=== PATIENT | female | born 1955 | race Caucasian/White ===

== ENCOUNTER → 2024-01-23 14:07 | Outpatient (REF) | payer BC, SELFPAY | LOC: HWRAD 14:07 | PROVIDERS: ATTENDING PHYSICIAN Internal Medicine Endocrinology, Diabetes & Metabolism; FAMILY PHYSICIAN Internal Medicine | DX: E03.9 Hypothyroidism, unspecified (principal) | CPT/HCPCS: 76536 ==

== ENCOUNTER → 2024-03-05 15:13 | Outpatient (REF) | payer BC, SELFPAY | LOC: HWWDC 15:13 | PROVIDERS: ATTENDING PHYSICIAN Physician Assistant | DX: Z12.31 Encounter for screening mammogram for malignant neoplasm of breast (principal) | CPT/HCPCS: 77063; 77067 ==

== ENCOUNTER 2024-07-13 08:00 | Day surgery (SDC) | payer BC, SELFPAY ==
[2024-07-12 20:53] VITALS: BP 144/104
[2024-07-12 23:37] VITALS: BP 137/77
[2024-07-12 23:38] VITALS: BMI 32.4
[2024-07-13] VITALS (16 sets, daily range): BP systolic 122–151; BP diastolic 72–86
--- NOTE | 2024-07-13 00:42 | ED.GENMED ---
History of Present Illness
General
Chief Complaint: Foreign Body Ingestion
Source: patient
Exam Limitations: none
Time Seen by Provider: 07/13/24 00:34
Nursing documentation reviewed up to this point in time: agreed with
History of Present Illness
History of Present Illness:
This is a 69-year-old female with a past medical history of hypothyroidism who presents emergency department today with concerns of food bolus impaction. Patient reports that last night (07/11/24), she was eating chicken when she noticed that the
piece of chicken got stuck in her throat. Patient reports that she tried to drink water but she states that she immediately vomited water. She tried to eat other softer foods but cannot get it down without vomiting. Patient reports that this has
been going on for the past 24 hours. She was able to get her thyroid medication down this morning without regurgitation. Patient reports that this has happened to her in the past and she has been eventually able to swallow the food after a few
hours but is never gone this long before. Patient has any pain in her throat. Patient denies any pain in her chest. Patient denies any hematemesis. Patient denies any shortness of breath.
Review of Systems
Review of Systems
All Other Systems: ROS reviewed and negative except as documented in HPI and ROS
Phy Exam
Physical Exam
Physical Exam:
General: Patient is well appearing and in no acute distress; non-toxic. Hoarseness to voice noted.
Skin: Warm and dry, no rashes or lesions
Head: Normocephalic, atraumatic
Eyes: Sclera non-icteric. EOMs intact.
Mouth: No intra-oral lesions
Throat: No pharyngeal erythema, uvula midline
Cardiac: Regular rate and rhythm
Pulm: Normal respiratory effort
Neuro: CN II-XII intact, no focal neurologic deficits.
Psychiatric: Appropriate mood and affect.
Course
Orders/Labs/Results
Orders:
Orders
07/13/24 00:47
Glucagon [GlucaGen] 1 mg IV NOW STA
07/13/24 00:55
Complete Blood Count/With Diff Urgent
Comprehensive Metabolic Panel Urgent
07/13/24 01:03
Glucagon [GlucaGen] 1 mg IV NOW STA
07/13/24 06:04
Consult Gastroenterology [GASTROINTESTINAL CONSULT] Urgent
Consulting Provider: Matthieu Spears
Was physician already notified: Yes
07/13/24 06:53
Propofol [Diprivan] 40 ml .ROUTE .STK-MED
Sugammadex Sodium [Bridion] 200 mg .ROUTE .STK-MED ONE
07/13/24 06:54
Ondansetron Injectable [Zofran] 4 mg .ROUTE .STK-MED ONE
Rocuronium [place] [Rocuronium] 50 mg .ROUTE .STK-MED ONE
07/13/24 07:24
Succinylcholine Chloride [Succinylcholine] 200 mg .ROUTE .STK-MED ONE
07/13/24 08:02
HYDROmorphone [Dilaudid] 0.25 mg IV PACU-Q5MPRN PRN
Meperidine [Demerol] 12.5 mg IV PACU-Q5MPRN PRN
Morphine Sulfate 1 mg IV PACU-Q5MPRN PRN
Ondansetron Injectable [Zofran] 4 mg IV PACU-ONCEPRN PRN
Prochlorperazine [Compazine] 5 mg IV PACU-ONCEPRN PRN
Notify MD As Directed
Notify physician if: for SDS patients with known or suspected sleep obstructive sleep apnea, monitor in the
PACU.
Notify MD for any apneic/desaturation episodes
O2 Therapy [RESP] Urgent
Titrate/Wean O2 to maintain O2 sat greater than (%): 92
Special Instructions: -Provide supplemental oxygen to achieve O2 sat of 92% or greater.
-After 15 min, may wean O2 and discontinue if patient is able to maintain O2 sat of 92%
or greater during recovery period.
If patient is a discharge home, without oxygen therapy, notify anestheiologist if
unable to maintain O2 SAT of 92% or greater on room air for MD clearance.
07/13/24 08:15
Normosol (Mult Electrolytes) [Normosol-R/Plasmalyte-A] 1,000 ml IV PER PROTOCOL
Abnormal Lab Results
07/13/24
00:55
Absolute Monos (auto) 0.8 H 10^3/uL
(0.1-0.6)
Monocytes % 10.0 H %
(1.7-9.3)
Sodium 147 H mmol/L
(135-145)
Chloride 113 H mmol/L
(98-107)
Glucose 107 H mg/dl
(70-99)
07/13/24 00:55
07/13/24 00:55
Vital Signs
Initial and Last Documented VS:
Initial Vital Signs
Temp Pulse Resp BP Pulse Ox
98.2 F 78 16 144/104 98
07/12/24 20:53 07/12/24 20:53 07/12/24 20:53 07/12/24 20:53 07/12/24 20:53
Last Documented Vital Signs
Temp Pulse Resp BP Pulse Ox
98 F 88 16 133/76 94
07/13/24 09:18 07/13/24 10:00 07/13/24 10:00 07/13/24 10:00 07/13/24 10:00
MDM/Problems Addressed
Differential Diagnosis Includes:
ddx include esophageal food bolus impaction, esophagitis, esophageal web/stricture, achalasia
MDM/Problems Addressed:
This is a 69-year-old female with a past medical history of hypothyroidism who presents emergency department today with concerns of food bolus impaction. Patient reports that last night (07/11/24), she was eating chicken when she noticed that the
piece of chicken got stuck in her throat. She is currently has hoarseness to her voice and she will vomit every 20 min or so. She is not able to get food or liquids down. She received 2 doses of glucagon via IV. She subsequently seemed to be able
to tolerate sips of water however she subsequently had a return of her vomiting. GI attending made aware via [place] text at 1:30 AM. Give update at 2:18 AM. Did not receive response. Attending made aware. Since patient was stable, decision was
made to observe patient in the ED and have GI see her in the morning.
I spoke to Dr. Spears on the phone at 6:00 am. I did confirm that he is coming in to see the patient.
*Critical Care Note
Total Time (30-74mins, 75-104mins- exclusive of procedures): Not Applicable
ED Attending Note
-
Portions of this chart may have been created with voice recognition software.� Occasional wrong word or��sound alike� substitutions may have occurred due to the inherent limitations of voice recognition software.
Discharge Plan
Departure
Patient Disposition: Home (Routine Discharge)
Date of Disposition: 07/13/24
Time of Disposition: 06:06
Patient with high blood pressure during this ER visit?: Yes
Condition: Fair
Discharge Problem:
Food impaction of esophagus
Interventions
Interventions:
*Risk Screen - Suicide Last Done: 07/12/24 20:53
*General Assessment Last Done: 07/12/24 23:38
*Neglect/Abuse Screening Last Done: 07/12/24 20:53
*ED- Fall Risk Assessment Last Done: 07/12/24 23:38
*ED COVID-19 Vaccine History Last Done: 07/12/24 23:38
*Nursing Disposition Last Done: 07/13/24 07:50
PS-Bssqol-Nvfntwwkxf Assessment Last Done: 07/12/24 23:38
ED- Pulmonary Assessment Last Done: 07/12/24 23:38
ED-EENT Assessment Last Done: 07/12/24 23:38
Discharge Date and Time
Discharge Date/Time: 07/13/24 07:50
[2024-07-13 01:04] LABS: % Basophils 0.6 % (0-2); % Eosinophils 1.9 % (0-6); % Immature Granulocytes 0.4 % (0-0.5); % Lymphocytes 22.8 % (20.5-51.1); % Neutrophils 64.3 % (42.2-75.2); Absolute Basophils 0.1 10^3/uL (0-0.2); Absolute Eosinophils 0.2 10^3/uL (0-0.7); Absolute Lymphocytes 1.9 10^3/uL (1.2-3.4); Absolute Monocytes 0.8 10^3/uL (0.1-0.6); Absolute Neutrophils 5.2 10^3/uL (1.4-6.5); Hematocrit 43.6 % (37.0-47.0); Hemoglobin 14.7 g/dL (12.0-16.0); Mean Corp Hgb Conc. 33.7 g/dL (33.0-37.0); Mean Corpuscular Hgb 29.9 pg (27.0-31.0); Mean Corpuscular Volume 88.6 fL (81.0-99.0); Mean Platelet Volume 9.2 fL (7.4-10.4); Nucleated Red Blood Cells % 0 %; Platelet Count 280 10^3/uL (130-400); Red Blood Cell Count 4.92 10^6/uL (4.20-5.40); White Blood Cell Count 8.1 10^3/uL (4.8-10.8)
[2024-07-13] MEDS: GlucaGen 1 MG IV ×2 (01:05→01:35)
[2024-07-13 01:21] LABS: ALT (SGPT) 29 U/L (0-35); AST (SGOT) 27 U/L (14-36); Albumin 4.9 g/dl (3.5-5.0); Alkaline Phosphatase 54 U/L (38-126); Blood Urea Nitrogen 17 mg/dl (7-17); Calcium 9.6 mg/dl (8.4-10.2); Carbon Dioxide 25 mmol/L (22-30); Chloride 113 mmol/L (98-107); Estimated Creatinine Clearance 69 ml/min; Glucose 107 mg/dl (70-99); Potassium 3.8 mmol/L (3.5-5.1); Sodium 147 mmol/L (135-145); Total Protein 7.8 g/dl (6.3-8.2); eGFR > 60.00
--- NOTE | 2024-07-13 08:03 | CON.GI ---
Consultation
-
Date/Time Consultation Requested: 07/13/2024
Date/Time Consultation Performed: 07/13/2024
Performing Provider: Matthieu Spears
Reason for Consultation: food impaction
Medical History
Chief Complaint / HPI
Chief Complaint: Food impaction
History of Present Illness:
Patient is a 69 year-old female with history of hypothyroidism who presents with suspected food impaction. She reports sensation of piece of chicken getting stuck in her throat since 07/11. She had been having similar symptoms intermittently for
past 2 years or so without any progression. She was able to clear her ingested content by drinking some water, but was not able to do so during this episode. She has not been able to tolerate any oral intake since. It seems she was able to clear
her secretions however.
Past Medical History
Past Medical History: Hypothyroidism
Past Surgical History: Gynecological
Social History
Tobacco: Non-Smoker
Alcohol: None
Family History
Family History: Reviewed & Not Pertinent
Allergies / Home Medications
Allergy/AdvReac Type Severity Reaction Status Date / Time
Penicillins Allergy Nausea / Verified 07/12/24 20:56
Vomiting
�Medication �Instructions �Recorded
levothyroxine 75 mcg tablet 75 mcg PO DAILY 07/12/24
Review of Systems
Vital Signs
Temp Pulse Resp BP Pulse Ox
98.2 F 78 16 133/74 93
07/12/24 20:53 07/12/24 20:53 07/12/24 20:53 07/13/24 07:00 07/13/24 07:00
Physical Exam
Exam
General: Well Developed and Well Nourished
HEENT: Normocephalic
Respiratory: Clear
Cardiac: S1/S2
GI: Soft, Non Tender, Non Distended and Normal Bowel Sounds
Results
WBC 8.1 10^3/uL (4.8-10.8) 07/13/24 00:55
Hgb 14.7 g/dL (12.0-16.0) 07/13/24 00:55
Hct 43.6 % (37.0-47.0) 07/13/24 00:55
MCV 88.6 fL (81.0-99.0) 07/13/24 00:55
Plt Count 280 10^3/uL (130-400) 07/13/24 00:55
Absolute Neuts (auto) 5.2 10^3/uL (1.4-6.5) 07/13/24 00:55
Sodium 147 mmol/L (135-145) H 07/13/24 00:55
Potassium 3.8 mmol/L (3.5-5.1) 07/13/24 00:55
Chloride 113 mmol/L (98-107) H 07/13/24 00:55
Carbon Dioxide 25 mmol/L (22-30) 07/13/24 00:55
BUN 17 mg/dl (7-17) 07/13/24 00:55
Creatinine 0.8 mg/dL (0.6-1.0) 07/13/24:55
Calcium 9.6 mg/dl (8.4-10.2) 07/13/24 00:55
Total Bilirubin 1.0 mg/dl (0.2-1.3) 07/13/24 00:55
AST 27 U/L (14-36) 07/13/24 00:55
ALT 29 U/L (0-35) 07/13/24 00:55
Alkaline Phosphatase 54 U/L (38-126) 07/13/24 00:55
Diagnostic Image Results:
Prior GI Procedures:
EGD:
Colonoscopy:
Assessment / Plan
-
69-year-old female with hypothyroidism who presents for suspected food impaction.
Impression / Rec:
1. Suspected food impaction - she reports her symptoms started on 07/11. She appears to clear her own secretions but has not been able to tolerate any oral intake. She also reports similar symptoms intermittently although has been able to clear
her ingested content by drinking some fluids. Plan for EGD for evaluation/intervention.
Total Time Spent with Patient (in minutes): 55
-
-
Thank you for consultation and allowing me to participate in the patient's care. Please call the communications attendant GI physician during the after hours with any questions or concerns.
== END 2024-07-13 10:15 | disposition home or self-care (01) ==
LOC: GI 08:00
PROVIDERS: Physician Assistant; ATTENDING PHYSICIAN Internal Medicine Gastroenterology; EMERGENCY PHYSICIAN Student in an Organized Health Care Education/Training Program; FAMILY PHYSICIAN Internal Medicine
DX: T18.128A Food in esophagus causing other injury, initial encounter (principal); K22.10 Ulcer of esophagus without bleeding; K22.89 Other specified disease of esophagus; W44.F3XA Food entering into or through a natural orifice, initial encounter; E03.9 Hypothyroidism, unspecified; Z88.0 Allergy status to penicillin
CPT/HCPCS: 99284; 43247; 96374; 96375; 88305; 80053; 85025; J1610

== ENCOUNTER 2024-09-03 06:24 | Day surgery (SDC) | payer BC, SELFPAY | END 2024-09-03 11:52 | disposition home or self-care (01) | LOC: GI 06:24 | PROVIDERS: ATTENDING PHYSICIAN Internal Medicine Gastroenterology | DX: Z12.11 Encounter for screening for malignant neoplasm of colon (principal); K64.0 First degree hemorrhoids; K55.20 Angiodysplasia of colon without hemorrhage; K44.9 Diaphragmatic hernia without obstruction or gangrene; K22.89 Other specified disease of esophagus; K22.10 Ulcer of esophagus without bleeding; R13.10 Dysphagia, unspecified; D12.5 Benign neoplasm of sigmoid colon; D12.3 Benign neoplasm of transverse colon; D12.0 Benign neoplasm of cecum; K20.0 Eosinophilic esophagitis; Z80.0 Family history of malignant neoplasm of digestive organs | CPT/HCPCS: 45385; 45381; 45380; 43239; 88305; 88342 ==

== ENCOUNTER 2024-11-20 06:09 | Day surgery (SDC) | payer BC, SELFPAY ==
[2024-11-20 07:01] VITALS: BMI 31.2
[2024-11-20 07:21] VITALS: BP 135/76
[2024-11-20 07:25] VITALS: BP 135/76
[2024-11-20 09:47] VITALS: BP 133/82
[2024-11-20 10:00] VITALS: BP 125/83
[2024-11-20 10:15] VITALS: BP 131/75
== END 2024-11-20 11:00 | disposition home or self-care (01) ==
LOC: SDS 06:09
PROVIDERS: ATTENDING PHYSICIAN Internal Medicine Gastroenterology
DX: D12.0 Benign neoplasm of cecum (principal); D12.2 Benign neoplasm of ascending colon; D12.3 Benign neoplasm of transverse colon; K64.0 First degree hemorrhoids
CPT/HCPCS: 45390; 45385; 88305